=== PATIENT | male | born 1985 | race Caucasian/White ===

== ENCOUNTER 2022-03-27 20:22 | Emergency (ER) | payer SELFPAY ==
[~2022-03-27] VITALS: Ht 177.8 cm; Wt 76.6 kg
[2022-03-27 21:16] LABS: HEMATOCRIT 42.3 % (42.0-52.0); HEMOGLOBIN 14.7 g/dl (13.5-17.5); MEAN CORPUSCULAR HEMOGLOBIN 29.4 pg (27.0-33.0); MEAN CORPUSCULAR HGB CONC 34.8 g/dl (32.0-36.5); MEAN CORPUSCULAR VOLUME 84.6 fl (80.0-96.0); PLATELET COUNT, AUTOMATED 323 10^3/uL (150-450); WHITE BLOOD COUNT 10.1 10^3/uL (4.0-10.0)
[2022-03-27 21:40] LABS: RSV AMPLIFICATION NEGATIVE (NEGATIVE)
[2022-03-27 22:18] LABS: ACETAMINOPHEN LEVEL < 2.0 UG/ML (10.0-30.0); ALBUMIN 4.1 GM/DL (3.2-5.2); ALT/SGPT 23 U/L (12-78); BILIRUBIN,DIRECT 0.3 MG/DL (0.0-0.2); BLOOD UREA NITROGEN 12 MG/DL (7-18); CARBON DIOXIDE LEVEL 21 MEQ/L (21-32); CHLORIDE LEVEL 104 MEQ/L (98-107); CREATININE FOR GFR 0.79 MG/DL (0.70-1.30); ETHYL ALCOHOL (ETHANOL) < 0.003 % (0.000-0.010); GLOMERULAR FILTRATION RATE > 60.0 (>60); GLUCOSE, FASTING 102 MG/DL (70-100); POTASSIUM SERUM 3.7 MEQ/L (3.5-5.1); SALICYLATE LEVEL < 1.7 MG/DL (5.0-30.0); SODIUM LEVEL 139 MEQ/L (136-145); THYROID STIMULATING HORMONE 0.341 uIU/ML (0.358-3.740); TOTAL PROTEIN 7.4 GM/DL (6.4-8.2)
[2022-03-27] MEDS ORDERED: HOME MED LIST COMPLETE! XX SCH (23:55)
[2022-03-28 07:02] LABS: AMPHETAMINES LEVEL URINE POSITIVE (NEGATIVE); BARBITURATES URINE NEGATIVE (NEGATIVE); BENZODIAZEPINES URINE NEGATIVE (NEGATIVE); CANNABINOIDS URINE POSITIVE (NEGATIVE); COCAINE METABOLITE URINE POSITIVE (NEGATIVE); METHADONE URINE NEGATIVE (NEGATIVE); OPIATES URINE NEGATIVE (NEGATIVE); PHENCYCLIDINE URINE NEGATIVE (NEGATIVE)
[2022-03-28] MEDS ORDERED: LORazepam 1 MG TAB PO ONE (14:15)
[2022-03-28] MEDS ORDERED: LORazepam 2 MG TAB PO STA (21:02)
[2022-03-29] MEDS ORDERED: LORazepam 2 MG TAB PO ONE (09:50)
[2022-03-29 12:49] VITALS: BP 147/88
== END 2022-03-29 15:45 | disposition home or self-care (01) ==
LOC: M ED 20:22
DX: F23 Brief psychotic disorder (principal); R45.850 Homicidal ideations; F17.200 Nicotine dependence, unspecified, uncomplicated

== ENCOUNTER 2022-08-05 18:43 | Emergency (ER) | payer SELFPAY ==
[2022-08-05] MEDS ORDERED: LORazepam 2 MG/ML 1ML VIAL IM STA (19:24)
[2022-08-05] MEDS ORDERED: OLANZapine INTRAMUSCULAR 10MG VIAL IM ONE (19:25)
[2022-08-05 21:38] LABS: HEMATOCRIT 44.5 % (42.0-52.0); HEMOGLOBIN 14.9 g/dl (13.5-17.5); MEAN CORPUSCULAR HGB CONC 33.5 g/dl (32.0-36.5); MEAN CORPUSCULAR VOLUME 89.7 fl (80.0-96.0); PLATELET COUNT, AUTOMATED 325 10^3/uL (150-450); RED BLOOD COUNT 4.96 10^6/uL (4.30-6.10); WHITE BLOOD COUNT 7.1 10^3/uL (4.0-10.0)
[2022-08-05 21:58] LABS: BARBITURATES URINE NEGATIVE (NEGATIVE); BENZODIAZEPINES URINE NEGATIVE (NEGATIVE)
[2022-08-05 21:59] LABS: CANNABINOIDS URINE NEGATIVE (NEGATIVE); METHADONE URINE NEGATIVE (NEGATIVE); OPIATES URINE NEGATIVE (NEGATIVE); PHENCYCLIDINE URINE NEGATIVE (NEGATIVE)
[2022-08-05 22:01] LABS: COCAINE METABOLITE URINE NEGATIVE (NEGATIVE); ETHYL ALCOHOL (ETHANOL) 0.148 % (0.000-0.010)
[2022-08-05 22:02] LABS: ACETAMINOPHEN LEVEL < 2.0 UG/ML (10.0-20.0); AMPHETAMINES LEVEL URINE POSITIVE (NEGATIVE)
[2022-08-05 22:03] LABS: SALICYLATE LEVEL < 3.0 MG/DL (<30)
[2022-08-05 22:06] LABS: ALBUMIN 3.6 G/DL (3.2-5.2); ALKALINE PHOSPHATASE 116 U/L (46-116); ALT/SGPT 15 U/L (7.0-40); AST/SGOT 18 U/L (<34); BILIRUBIN,DIRECT 0.1 MG/DL (<0.4); BILIRUBIN,TOTAL 0.4 MG/DL (0.3-1.2); BLOOD UREA NITROGEN 13 MG/DL (9-23); CALCIUM LEVEL 8.5 MG/DL (8.5-10.1); CARBON DIOXIDE LEVEL 27 MMOL/L (20-31); CHLORIDE LEVEL 107 MMOL/L (98-107); CREATININE FOR GFR 0.79 MG/DL (0.70-1.30); GLOMERULAR FILTRATION RATE > 60.0 (>60); GLUCOSE, FASTING 84 MG/DL (60-100); POTASSIUM SERUM 3.7 MMOL/L (3.5-5.1); SODIUM LEVEL 143 MMOL/L (136-145); THYROID STIMULATING HORMONE 0.365 uIU/ML (0.55-4.78)
[2022-08-05 22:16] LABS: TOTAL PROTEIN 6.7 G/DL (5.7-8.2)
[2022-08-06] MEDS ORDERED: HOME MED LIST COMPLETE! XX SCH (11:40)
[2022-08-06] MEDS ORDERED: LORazepam 1 MG TAB PO STA (12:34)
[2022-08-07] MEDS ORDERED: LORazepam 1 MG TAB PO STA (10:58)
[2022-08-08 06:25] VITALS: BP 128/77
[2022-08-08] MEDS ORDERED: LORazepam 2 MG TAB PO PRN (11:10)
== END 2022-08-08 14:17 | disposition home or self-care (01) ==
LOC: M ED 18:43
DX: F32.A Depression, unspecified (principal); F43.0 Acute stress reaction; F10.10 Alcohol abuse, uncomplicated
CPT/HCPCS: 36415; 80048; 80076; 80143; 80307; 82077; 84443; 85027; 87635; 93005; 96372; 99285; S0166